=== PATIENT | male | born 1965 | race Caucasian/White ===

== ENCOUNTER 2021-09-07 11:29 | Emergency (ER) | payer OTHER, SELFPAY ==
[2021-09-07 11:45] VITALS: BP 150/97; PULSE 80; RESP 14; TEMP 37.1; O2SAT 99
--- NOTE | 2021-09-07 11:59 | ED.ANIMALBIT ---
HPI - Animal Bite General Chief Complaint: Animal Bite Stated Complaint: dog bite Time Seen by Provider: 09/07/21 11:59 Source: patient and family History of Present Illness HPI narrative: patient presents with dog bite to right hand. patient was walking his dogs and neighbors dog got out of fence. Patient jumped on pit bull to protect his dogs. and dog bit him on his right hand. two puncture wounds to right hand. Bleeding controled. Related Data Allergies Allergy/AdvReac Type Severity Reaction Status Date / Time No Known Allergies Allergy Verified 12/27/17 09:34 Review of Systems Review of Systems: CONSTITUTIONAL: Denies fever, chills, or sweats. EYES: Denies visual changes, redness, or discharge. ENT: Denies rhinorrhea, congestion, sore throat, or otalgia. CARDIOVASCULAR: Denies chest pain, palpitations, or edema. RESPIRATORY: Denies cough or dyspnea. GASTROINTESTINAL: Denies abdominal pain, nausea, vomiting, or diarrhea. GENITOURINARY: Denies dysuria or hematuria. SKIN: Denies rash or itching. MUSCULOSKELETAL: Denies back pain, joint pain, or myalgia. NEUROLOGIC: Denies headache, numbness, or weakness. PSYCHIATRIC: Denies anxiety or depression. [facility] Family History Family History (Updated 07/03/16 @ 10:03 by DOCTOR UNKNOWN) Father Family history of Parkinson's disease Sibling Family history of malignant neoplasm of breast in first degree relative Other Cerebrovascular accident Diabetes mellitus Family history of arthritis Family history of cardiovascular disease Family history of malignant neoplasm Hypertension Social History Social History Smoking status: Never smoker Smoking end date: 07/19/12 Alcohol intake: current Comments At time of signature, agree with nursing past medical, surgical, social and family history. There is no relevant family history pertinent to the presenting complaint Exam Narrative: GENERAL: Well-appearing, well-nourished, and in no acute distress. HEAD: Normocephalic, atraumatic. EYES: PERRLA and EOMI. ENT: Nares clear, no rhinorrhea or epistaxis. Mucous membranes moist. NECK: Supple. CHEST: Clear to auscultation. No respiratory distress. HEART: Regular rate and rhythm. No murmur heard. Normal peripheral pulses. ABDOMEN: Soft, nontender, nondistended, normal active bowel sounds. EXTREMITIES: Normal range of motion. No edema. HAND EXAM -puncture wounds to right hand see below no laceration, no swelling, no erythema, normal digit cascade with flexion of fingers, median nerve, ulnar nerve, radial nerve is intact. Normal sensation of each side of each finger, can perform `ok? sign, `cross over finger test of index and middle fingers? and `thumbs up? sign, normal thumb opposition, no scissoring. good capillary refill and radial pulse. normal flexion and extension of fingers and wrist. normal supination at wrist. Normal forearm and elbow exam. SKIN: Warm, dry, no rash. NEURO: No focal deficits. Alert and oriented x3. [place] Coma Scale Eye Opening: Spontaneous 4 [place] Coma Scale Motor: Obeys Commands 6 Denn[place] Coma Scale Verbal: Oriented 5 Dennys Coma Scale Total 15 Extrem: Hand/finger images: 1. puncture wound 2. puncture wound Course Course Level of Care: Express Care Visit Vital Signs Vital signs: Vital Signs Temperature 37.1 C 09/07/21 11:45 Pulse Rate 80 09/07/21 11:45 Respiratory Rate 14 09/07/21 11:45 Blood Pressure 150/97 H 09/07/21 11:45 Pulse Oximetry 99 09/07/21 11:45 Temperature 37.1 C 09/07/21 11:45 Pulse Rate 80 09/07/21 11:45 Respiratory Rate 14 09/07/21 11:45 Blood Pressure 150/97 H 09/07/21 11:45 Pulse Oximetry 99 09/07/21 11:45 Please SON schedule a followup visit with your personal physician for further evaluation and treatment. Including recheck and discussion of your blood pressure. If your symptoms persist, change or worsen significantly before you can contact your personal physician th
[2021-09-07] MEDS: TETANUS,DIPHTHERIA,AC PERTUSSIS ADULT (0.5 ML) BOOSTRIX IM (12:06)
== END 2021-09-07 12:21 | disposition home or self-care (01) ==
PROVIDERS: Emergency Provider Nurse Practitioner Family
DX: S61.431A Puncture wound without foreign body of right hand, initial encounter (principal); W54.0XXA Bitten by dog, initial encounter; Z23 Encounter for immunization; I48.91 Unspecified atrial fibrillation; Z86.16 Personal history of COVID-19
CPT/HCPCS: 90471; 90715; 99202; G0463

== ENCOUNTER 2023-12-11 18:30 | Emergency (ER) | payer OTHER, SELFPAY ==
[2023-12-11 18:38] VITALS: BP 155/90; PULSE 110; RESP 18; TEMP 38.1; O2SAT 99
--- NOTE | 2023-12-11 18:41 | ED.URI ---
HPI - URI/Sore Throat General Chief Complaint: Upper Respiratory Infection Stated Complaint: Cough/Fever Time Seen by Provider: 12/11/23 18:41 Source: patient, RN notes reviewed and old records reviewed Mode of arrival: ambulatory Limitations: no limitations History of Present Illness HPI Narrative: 58 year old male presents to [facility] care accompanied by with complaints of cough, chest congestion and nasal congestion for one week duration with fevers starting today. Patient reports that he has had fevers up to 101.8F and he has been taking DayQuil,NyQuil and Mucinex. Patient reports that he has been coughing up some white phlegm. Patient denies any acute dyspnea, admits to noting some wheezing when supine at times. Patient reports that had been ill with similar symptoms. MD elicited complaint: fever, cough, rhinorrhea, nasal congestion and other (body aches) Onset (ago): week(s) (1 with fevers today) Consistency: constant Pain scale (0-10): 4 Able to tolerate fluids by mouth: Yes Treatments prior to arrival: other (DayQuil,NyQuil and Mucinex) Related Data Allergies Allergy/AdvReac Type Severity Reaction Status Date / Time No Known Allergies Allergy Verified 12/11/23 18:36 Review of Systems Review of Systems: CONSTITUTIONAL: Reports malaise, chills, sweats, or fever. EYES: Denies visual changes, redness, or discharge. ENT: Reports rhinorrhea, congestion, sinus pain,no otalgia and no sore throat. CARDIOVASCULAR: Denies chest pain, palpitations, or edema. RESPIRATORY: Reports cough.? Denies dyspnea. GASTROINTESTINAL: Denies abdominal pain, nausea, vomiting, diarrhea SKIN: Denies rash or itching. MUSCULOSKELETAL: reports myalgia. NEUROLOGIC: Denies headache. All systems reviewed & are unremarkable except as noted in HPI and below PMFSH Past Medical History Medical History Atrial fibrillation Biceps tendon tear left with surgical repair Kidney stone Surgical History Surgical History H/O ventral hernia repair History of tonsillectomy Family History Family History Father Family history of Parkinson's disease Sibling Family history of malignant neoplasm of breast in first degree relative Other Cerebrovascular accident Diabetes mellitus Family history of arthritis Family history of cardiovascular disease Family history of malignant neoplasm Hypertension Social History Social History Smoking end date: 07/19/12 Alcohol intake: current Substance use type: does not use Living arrangements: with family Gender identity (if verbalized by the patient): Male Comments At time of signature, agree with nursing past medical, surgical, social and family history. There is no relevant family history pertinent to the presenting complaint Exam Narrative: GENERAL: Well-appearing, well-nourished, and in no acute distress. HEAD: Normocephalic EYES: PERRLA, conjunctivae clear ENT: Nares clear, turbinates edematous and erythematous, clear discharge. Mucous membranes moist. TM pearly [place] with dull light reflex bilaterally; no tragal tenderness. Oropharynx erythematous without lesions. Tonsils not present and throat without exudate, no drooling, no hoarseness, no trismus, uvula midline.post nasal drainage NECK: Supple. No lymphadenopathy CHEST:Scattered wheezing on auscultation, breath sounds equal. positive wheezing, no rhonchi, rales, or stridor. No respiratory distress, speaks in full sentences.productive cough of white phelgm SAO2 99% on room air, no retractions or tachypnea noted HEART: Regular rate and rhythm. No murmur heard. SKIN: Warm, dry, no rash. NEURO: Alert and oriented x3. PSYCH: Normal mood and affect Course Course Emergency Course
== END 2023-12-11 19:16 | disposition home or self-care (01) ==
PROVIDERS: Emergency Provider Registered Nurse
DX: J40 Bronchitis, not specified as acute or chronic (principal); I48.91 Unspecified atrial fibrillation; Z20.822 Contact with and (suspected) exposure to COVID-19
CPT/HCPCS: 87426; 87804; 99213; G0463

== ENCOUNTER 2023-12-20 19:47 | Observation (INO) | payer OTHER, SELFPAY ==
--- NOTE | ~2023-12-20 | MR_ITS ---
EXAMINATION: MR brain/brain stem wo con DATE: 12/21/2023 08:33 INDICATION: Transient ischemic attack. Stroke. TECHNIQUE: Magnetic resonance imaging (MRI) of the brain and brainstem was performed without intraven ous contrast. COMPARISON: Head CT 12/20/2023 FINDINGS: There is no intracranial hemorrhage, acute infarction, or abnormal intracranial mass lesion . The ventricles are normal in size. The mastoid air cells are normal. There is mild mucosal thickeni ng in the paranasal sinuses. The orbits are normal. IMPRESSION: 1. Normal brain. Reviewed, dictated and finalized at location A. IMPRESSION: 1. Normal brain.
--- NOTE | ~2023-12-20 | XR_ITS ---
EXAMINATION: XR chest 1V portable Exam Date/Time: 12/20/2023 21:20 CDT HISTORY: FALL LEFT SIDE FACIAL DROOP Comparison: 02/03/2010. RESULT: Lines, tubes, and devices: None. Lungs and pleura: Clear. Cardiomediastinal silhouette: Stable. Other: No acute osseous or upper abdominal finding. IMPRESSION: No acute cardiopulmonary process. Reviewed, dictated and finalized at location K.
--- NOTE | ~2023-12-20 | CT_ITS ---
EXAMINATION: CTA brain carotid DATE: 12/20/2023 20:25 INDICATION: stroke TECHNIQUE: Computed tomographic angiography (CTA) of the head was performed with 100 mL Omnipaque-350 intravenous contrast. Automated exposure control and iterative reconstruction technique were employe d. The dose-length product was 1217.31 mGy-cm. Maximum intensity projection and volume rendered 3D-r econstructions were created by the technologist on a separate workstation. COMPARISON: CT brain, same date. FINDINGS: CTA HEAD: No large vessel occlusion, aneurysm, high flow vascular malformation, nidus or extravasation. Persist ent origin of the left posterior cerebral artery. Patent cerebral veins. Symmetric parenchymal enhancement. CTA NECK: Aortic arch and proximal great vessels: No significant atherosclerotic plaque. Left vertebral artery takes its origin directly off the aortic arch.. Right common carotid, carotid bifurcation, and internal carotid artery: No plaque.There is 0% stenosi s of the proximal right internal carotid artery relative to normal distal artery lumen diameter (NASC ET criteria). Left common carotid, carotid bifurcation, and internal carotid artery: No plaque.There is 0% stenosis of the proximal left internal carotid artery relative to normal distal artery lumen diameter (NASCET criteria). Vertebral arteries: No significant plaque or stenosis. Right vertebral artery is dominant, Other findings: Cervical spondylosis. Possible acute sinusitis. IMPRESSION: No large vessel intracranial occlusion, high-grade intracranial stenosis, or aneurysm. No carotid or vertebral artery occlusion, dissection, or significant stenosis. Reviewed, dictated and finalized at location K. IMPRESSION: No large vessel intracranial occlusion, high-grade intracranial stenosis, or an eurysm. No carotid or vertebral artery occlusion, dissection, or significant stenosis.
--- NOTE | ~2023-12-20 | CT_ITS ---
EXAMINATION: CT brain wo con DATE: 12/20/2023 20:08 INDICATION: Stroke . TECHNIQUE: Computed tomography (CT) of the head was performed without intravenous contrast. The mA wa s adjusted according to patient size. Iterative reconstruction technique was employed. The dose-lengt h product was 605.33 mGy-cm. COMPARISON: None. FINDINGS: No acute intracranial hemorrhage or extra-axial fluid collection. No hydrocephalus, mass, or herniation. No acute ischemic infarct. Unremarkable dural venous sinus attenuation. No acute osseous abnormality. Aerated secretions in the right sphenoid sinus and multiple ethmoid air cells, the remaining aerated spaces are clear. Mild atrophy and chronic white matter change. Atherosclerotic intracranial calcification. IMPRESSION: No acute intracranial process. Sinus findings may represent acute sinusitis in the appropriate clinical context. Results reported telephonically to Dr. Obrien by Dr. Henson at 8:12 PM on 01/06/2024. Reviewed, dictated and finalized at location K. IMPRESSION: No acute intracranial process. Sinus findings may represent acute sinusitis in the appropriate clinical contex t. Results reported telephonically to Dr. Obrien by Dr. Henson at 8:12 PM on 12/18.
[2023-12-20 19:35] VITALS: BP 160/82; PULSE 94; RESP 15
[2023-12-20 19:42] VITALS: BP 160/98; PULSE 92; RESP 16; TEMP 36.7; O2SAT 99
--- NOTE | 2023-12-20 20:04 | ECG_ITS ---
[facility] [address] Test Date: 2023-12-20 Pat Name: Jann Boyd Department: Room: Gender: M Banquet Cook: : 1965 Requested By: Sue Pelletier Order Number: [id number] Doris MD: Wayne Roblero M.D. Measurements Intervals [place] Rate: 86 P: 50 WA: 164 QRS: -19 QRSD: 108 T: 10 QT: 326 QTc: 391 Interpretive Statements SINUS RHYTHM INCOMPLETE RIGHT BUNDLE BRANCH BLOCK [90+ ms QRS DURATION, TERMINAL R IN V1/V2, 40+ ms S IN I/aVL/V4/V5/V6] No previous ECG available for comparison Electronically Signed On 12-21-2023 14:17:36 CDT by Wayne Roblero M.D.
[2023-12-20 20:07] LABS: Estimated Glomerular Filt Rate > 60
[2023-12-20 20:29] VITALS: PULSE 89; O2SAT 100
[2023-12-20 20:32] LABS: Basophils Percent Auto 0.5 % (0.2-1.2); Eosinophils Absolute Auto 0.1 K/mm3 (0-0.3); Eosinophils Percent Auto 1.5 % (0-4.4); Hematocrit 43.4 % (42.0-52.0); Hemoglobin 15.8 g/dL (14.0-18.0); Immature Granulocyte Absolute 0.05 K/mm3 (0.00-0.031); Immature Granulocyte Percent A 0.6 % (0-0.5); Lymphocytes Absolute Auto 1.66 K/mm3 (0.9-3.2); Lymphocytes Percent Auto 20.4 % (18.3-44.2); Mean Corpuscular HGB Conc 36.4 g/dl (32-36); Mean Corpuscular Volume 96.2 fl (80-100); Mean Platelet Volume 9.4 fl (7.4-10.4); Monocytes Absolute Auto 0.6 K/mm3 (0.1-0.6); Neutrophils Absolute Auto 5.7 K/mm3 (1.3-6.7); Platelet Count Result 265 k/mm3 (150-375); Red Blood Count 4.51 M/mm3 (4.6-6.20); Red Cell Distribution Width 11.8 % (11.5-14.5); White Blood Count 8.1 K/mm3 (4.5-10.0)
[2023-12-20 20:50] LABS: Alanine Aminotransferase 27 U/L (6-50); Albumin Level 3.7 g/dL (3.5-5.1); Alkaline Phosphatase 32 U/L (38-126); Anion Gap 11 mmol/L (4-12); Aspartate Amino Transferase 21 U/L (17-59); Bilirubin,Total 0.9 mg/dL (0.2-1.3); Blood Urea Nitrogen 14 mg/dL (9-20); Carbon Dioxide 18 mmol/L (22-30); Chloride 108 mmol/L (98-107); Creatine Kinase 47 U/L (55-170); Estimated CRCL calculation 85 ml/min; Estimated Glomerular Filt Rate > 60; Glucose 123 mg/dL (65-110); Magnesium 2.1 mg/dL (1.6-2.3); Potassium 3.5 mmol/L (3.4-5.0); Sodium 137 mmol/L (137-145)
[2023-12-20 21:08] LABS: Lactic Acid Reflex 3.1 mmol/L (0.7-2.0)
[2023-12-20] MEDS: SODIUM CHLORIDE 0.9% IV 1,000 ML 999 ML IV CONT (21:17)
[2023-12-20 21:21] LABS: Prothrombin Time 13.9 Seconds (11.1-14.7)
[2023-12-20 21:22] LABS: Partial Thromboplastin Time 28.4 Seconds (22.3-36.8)
--- NOTE | 2023-12-20 21:24 | ED.NEUROSD ---
HPI - Neuro Symptoms/Deficit General Chief Complaint: Suspected CVA Stated Complaint: left sided facial droop Time Seen by Provider: 12/20/23 19:57 History of Present Illness HPI Narrative: Patient is a 58-year-old male who presents emergency department this evening due to concern for stroke-like symptoms. states that around 7:00 p.m. they were having dinner when she noticed that his left arm was slumped over. Patient also asked her to help him get up from a seated position as he was not able to get up. Patient eventually did get up himself but noticed that he was more ataxic. also believes that she may have seen a left facial droop. She called 911 and EMS arrived. Per EMS report, by the time they arrived, they did not notice any left-sided weakness or left-sided facial droop and the patient's symptoms have completely resolved. Patient does have some mild tremors per EMS otherwise no additional symptoms. Patient is alert and oriented to person, place, time and situation is answering all of my questions appropriately. The only thing he cannot remember his age. NIH score 1. Patient does have some involuntary upper extremity and lower extremity movements which family members states started today earlier in the day. is unsure if the left upper extremity weakness she noticed at 7:00 a.m. was part of his involuntary muscle movements or due to weakness as patient has been having these muscle movements all day which makes him outside of the TPA window. Related Data Allergies Allergy/AdvReac Type Severity Reaction Status Date / Time No Known Allergies Allergy Verified 12/20/23 20:39 Review of Systems Review of Systems: All systems are reviewed and are negative unless stated otherwise in the HPI. [facility] Past Medical History Medical History Atrial fibrillation Biceps tendon tear left with surgical repair Kidney stone Surgical History Surgical History H/O ventral hernia repair History of tonsillectomy Family History Family History Father Family history of Parkinson's disease Sibling Family history of malignant neoplasm of breast in first degree relative Other Cerebrovascular accident Diabetes mellitus Family history of arthritis Family history of cardiovascular disease Family history of malignant neoplasm Hypertension Social History Social History Smoking end date: 07/19/12 Alcohol intake: current Substance use type: does not use Living arrangements: with family Gender identity (if verbalized by the patient): Male Exam Narrative: General: Alert, awake, afebrile, in no acute distress. HEENT: PERRL, no rhinorrhea, no post nasal drip, oropharynx clear. Cardiovascular: Regular rate and rhythm, no murmurs, rubs or gallops, no peripheral edema. Respiratory: Clear to auscultation bilaterally, no tachypnea, no wheezing, no rhonchi, no rubs, no respiratory distress. Abdomen: Soft, nontender, nondistended, no rebound, no guarding, no peritoneal signs. Musculoskeletal: No joint swelling or deformity, normal muscle tone. Skin: No rashes or petechia, no signs of infection. Neurological: Alert and oriented to person, place, and time. Follows all commands. 5/5 motor strength in the bilateral upper and lower extremity, sensation intact bilateral lower and upper extremity, cranial nerves 2-12 grossly intact, speech is clear and fluent. NIH score 1 since patient cannot remember his age. Course Vital Signs Vital signs: Vital Signs Pulse Rate 94 12/20/23 19:35 Respiratory Rate 15 12/20/23 19:35 Blood Pressure 160/82 H 12/20/23 19:35 Temperature 98.0 F 12/20/23 19:42 Pulse Rate 89 12/20/23 20:29 Respiratory Rate 16 12/20/23 19:42 Blood Pressure
[2023-12-20 21:33] LABS: Ethanol < 10 mg/dL (<10)
[2023-12-20 22:35] VITALS: BP 156/97; PULSE 103; RESP 16; O2SAT 97
[2023-12-20 22:39] VITALS: BP 144/87; PULSE 86; RESP 17; O2SAT 95
[2023-12-20 22:40] LABS: Folic Acid 5.5 ng/mL (2.76->20)
[2023-12-20 22:47] VITALS: BP 150/87; PULSE 77; RESP 18; TEMP 36.8; O2SAT 100; BMI 26.6
--- NOTE | 2023-12-20 22:50 | ADMGEN ---
This patient, Jann Boyd, was admitted to Medical Room 244-01. Patient/family oriented to hospital policies and general routines including ID bracelet, bed and alarms, visiting hours, pain management, procedures, bathroom and other care routines, personal items, smoking policy, room service/diet, and visiting hours. Information on how to activate the Rapid Response Team has been discussed. Patient/Family are encouraged to report perceived risks to care and to ask questions if they do not understand what they are told or what they should do.
[2023-12-20 23:30] LABS: Reflex Lactic Acid Yes or No Add Lactic
[2023-12-20 23:55] LABS: Lactic Acid 1.4 mmol/L (0.7-2.0)
[2023-12-21] VITALS: PULSE 89
--- NOTE | 2023-12-21 | ECHO_ITS ---
Patient Info Name: Jann Boyd Age: 58 years : 1965 Gender: Male Ht: 69 in Wt: 180 lbs BSA: 2.01 m2 HR: 68 bpm BP: 141 / 87 mmHg Heart Rhythm: Sinus Rhythm Technical Quality: Good Exam Date: 12/21/2023 8:49 AM Exam Location: Echo Lab Patient Status: Outpatient Admit Date: 12/21/2023 Staff Ordering Physician: Pooja Carty APRN Mirror Silverer: Susana Melchor RDCS Attending Provider: Brittanie Rudolph DO Referring Physician: Carloz HSIEH; Exam Type: CA echo doppler w bubble study Study Info Indications - stroke, tia Complete two-dimensional, color flow and Doppler transthoracic echocardiogram is performed with agitated saline. Contrast/Agitated Saline Contrast/Ag. Saline: Agitated Saline Amount: 30.00 ml Existing IV Access: Yes IV Access Condition: patent with no signs of infiltration Summary 1. Left ventricular chamber dimension is normal. 2. Left ventricular systolic function is normal, estimated at 60-65%. 3. There is mildly increased left ventricular wall thickness. 4. The left ventricular diastolic function is grade I diastolic dysfunction. 5. Right ventricular systolic function is normal. 6. Intact interatrial septum visualized by color flow and agitated saline imaging. Negative bubble study. 7. There is mild aortic valve regurgitation. Left Ventricle Left ventricular chamber dimension is normal. Left ventricular systolic function is normal, estimated at 60-65%. There is mildly increased left ventricular wall thickness. The left ventricular diastolic function is grade I diastolic dysfunction. Right Ventricle Right ventricular chamber dimension is normal. Right ventricular systolic function is normal. Left Atria Left atrial chamber dimension is normal. Right Atria Right atrial chamber dimension is normal. Atrial Septum Intact interatrial septum visualized by color flow and agitated saline imaging. Negative bubble study. Aortic Valve The aortic valve is trileaflet. There is mild aortic valve sclerosis. There is no aortic valve stenosis. There is mild aortic valve regurgitation. Pulmonic Valve The pulmonic valve is not well visualized. There is no pulmonic regurgitation. Mitral Valve The mitral valve has thickened leaflets. There is trace mitral valve regurgitation. Tricuspid Valve There is trace tricuspid valve regurgitation. Pericardium/Pleural There is no pericardial effusion. Inferior Vena Cava Normal inferior vena cava with >50% collapse upon inspiration consistent with normal right atrial pressure, 3 mmHg. Aorta The aortic root size at the sinus of Valsalva is normal. Left Ventricular Outflow Tract Name Value Normal LVOT 2D LVOT Diameter 2.1 cm LVOT Doppler LVOT Peak Gradient 4 mmHg LVOT Mean Gradient 2 mmHg LVOT VTI 19 cm LVOT VTI/AV VTI Ratio 0.7 LVOT Stroke Volume 65 ml LVOT CO 3.4 l/min LVOT CI 1.7 l/min/m2 Pulmonic Valve
[2023-12-21 04:00] VITALS: PULSE 73
[2023-12-21 04:37] VITALS: BP 141/87; PULSE 68; RESP 17; TEMP 36.8; O2SAT 99
--- NOTE | 2023-12-21 07:08 | PM.IMHP ---
H&P: HPI History of Present Illness Date/Time: 12/21/23 07:08 Chief Complaint: Left-sided weakness Narrative: This is a 58-year-old gentleman with a past medical history of atrial fibrillation Review of Systems Review of Systems: All systems reviewed & are unremarkable except as noted in HPI and below [facility] Past Medical History Medical History (Updated 12/21/23 @ 07:24 by Pooja Carty APRN) Atrial fibrillation Biceps tendon tear left with surgical repair Kidney stone Surgical History Surgical History H/O ventral hernia repair History of tonsillectomy Family History Family History Father Family history of Parkinson's disease Sibling Family history of malignant neoplasm of breast in first degree relative Other Cerebrovascular accident Diabetes mellitus Family history of arthritis Family history of cardiovascular disease Family history of malignant neoplasm Hypertension Social History Social History Smoking status: Never smoker Smoking end date: 07/19/12 Alcohol intake: current Drinks per week: 14 Substance use: never Substance use type: does not use Last use: LAST DRINK 12/19 1829 Do You Feel Safe in your Home?: Yes Lack of Transportation: No Lack of Food: Never True Current Housing: I Have Housing Concerned About Future Housing: No Difficulty Paying Gas/Electric Bills: No Difficulty Paying for Meds: No Currently Unemployed: No Education: Associate Degree Difficulty w/ Childcare or Family Care: No Living arrangements: with family Gender identity (if verbalized by the patient): Male Spiritual care concerns: No Meds Home Medications and Allergies Home Medications Medication Instructions Recorded Confirmed Type albuterol sulfate 90 mcg/actuation 2 puff inhalation QID PRN 12/11/23 12/20/23 Rx aerosol inhaler shortness of breath or wheezing #6.7 grams Allergies Allergy/AdvReac Type Severity Reaction Status Date / Time No Known Allergies Allergy Verified 12/20/23 20:39 Vital Signs Vital Signs - 24 hr 12/20/23 19:42 12/20/23 20:29 12/20/23 20:29 Temperature 98.0 F Pulse Rate 92 89 Respiratory Rate 16 Blood Pressure 160/98 H Pulse Oximetry 99 100 Oxygen Delivery Room Air Room Air 12/20/23 19:35 12/20/23 22:35 12/20/23 22:39 Temperature Pulse Rate 94 103 H 86 Respiratory Rate 15 16 17 Blood Pressure 160/82 H 156/97 H 144/87 H Pulse Oximetry 97 95 Oxygen Delivery 12/20/23 22:47 12/20/23 23:03 12/21/23 00:00 Temperature 98.3 F Pulse Rate 77 89 Respiratory Rate 18 Blood Pressure 150/87 H Pulse Oximetry 100 Oxygen Delivery Room Air 12/21/23 04:00 12/21/23 04:37 Temperature 98.2 F Pulse Rate 73 68 Respiratory Rate 17 Blood Pressure 141/87 H Pulse Oximetry 99 Oxygen Delivery Exam Narrative: General: well appearing, appears stated age. HEENT: normocephalic, atraumatic. Mucous membranes moist. EOMI, PERRLA, bilateral sclera anicteric, no conjunctival injection. Neck supple without JVD, lymphadenopathy, or bruit. Respiratory: clear to auscultation bilaterally. No rales/rhonic/wheezes. Cardiovascular: Regular rate and rhythm, normal S1-S2 upon auscultation. No murmurs, rubs, or clicks. PMI is nondisplaced, capillary refill less than 3 second. Abdomen: Soft, round, no pulsatile masses, nondistended and nontender. No rebound, no guarding. No CVA tenderness, no hepatosplenomegaly. Bowel sounds present to all four quadrants. No high pitch or tinkling sounds, resonant to percussion. Extremities: No cyanosis, clubbing, or edema present. Pulses are palpable 2/2. Active ROM to all four extremities. Neuro: Alert and orientated x 4. PERRLA. Cranial nerves 2-12 intact without focal deficit. Skin: Warm, dry, and intact
[2023-12-21 08:00] VITALS: PULSE 62
[2023-12-21 08:23] LABS: Hematocrit 47.3 % (42.0-52.0); Hemoglobin 16.2 g/dL (14.0-18.0); Mean Corpuscular HGB Conc 34.2 g/dl (32-36); Mean Corpuscular Hemoglobin 34.4 pg (26-34); Mean Corpuscular Volume 100.4 fl (80-100); Mean Platelet Volume 9.8 fl (7.4-10.4); Platelet Count Result 279 k/mm3 (150-375); Red Blood Count 4.71 M/mm3 (4.6-6.20); Red Cell Distribution Width 11.8 % (11.5-14.5); White Blood Count 8.6 K/mm3 (4.5-10.0)
[2023-12-21 08:46] LABS: Alanine Aminotransferase 32 U/L (6-50); Albumin Level 3.9 g/dL (3.5-5.1); Alkaline Phosphatase 36 U/L (38-126); Anion Gap 4 mmol/L (4-12); Aspartate Amino Transferase 24 U/L (17-59); Bilirubin,Total 1.3 mg/dL (0.2-1.3); Blood Urea Nitrogen 11 mg/dL (9-20); Calcium 9.2 mg/dL (8.4-10.2); Carbon Dioxide 28 mmol/L (22-30); Chloride 108 mmol/L (98-107); Estimated CRCL calculation 97 ml/min; Estimated Glomerular Filt Rate > 60; Glucose 115 mg/dL (65-110); Potassium 3.9 mmol/L (3.4-5.0); Sodium 140 mmol/L (137-145)
[2023-12-21 08:48] LABS: Magnesium 2.5 mg/dL (1.6-2.3)
[2023-12-21 08:58] VITALS: O2SAT 99
[2023-12-21 09:02] LABS: Hemoglobin A1C 5.2 % (<5.7)
[2023-12-21 10:27] LABS: Amphetamine Screen Urine Negative (Negative); Barbiturate Screen Urine Negative (Negative); Benzodiazepines Screen Urine Negative (Negative); Cannabinoid Screen Urine Negative (Negative); Cocaine Screen Urine Negative (Negative); Methadone Screen Urine Negative (Negative); Opiate Screen Urine Negative (Negative); Phencyclidine Screen Urine Negative (Negative)
[2023-12-21 10:50] LABS: Cholesterol 218 mg/dL (0-200); HDL Direct 44 mg/dL; Triglycerides 185 mg/dL (<150)
[2023-12-21 11:01] LABS: LDL Cholesterol Direct 137 mg/dL
--- NOTE | 2023-12-21 11:46 | WPDNEURCNPN ---
Assessment and Plan Assessment and plan (1) Atrial fibrillation: Code(s): I48.91 - Unspecified atrial fibrillation Status: Acute (2) Stroke-like symptom: Code(s): R29.90 - Unspecified symptoms and signs involving the nervous system Status: Acute (3) Seizure: Code(s): R56.9 - Unspecified convulsions Status: Acute Plan 1. TIA considering the past history of atrial fibrillation even though it was long time ago and considering his age he will need the monitoring and for that reason cardiology consultation can be obtained and in the meantime echocardiogram with bubble study can also be obtained ,he can be started on aspirin 81mg daily and Plavix 75mg daily for the next 3 weeks Until and unless his studies are abnormal to consider the anticoagulation therapy. 2. Considering the history of tremulousness prior to this episode EEG can be obtained to rule out the possibility of focal seizures. As the family is extremely concerned about the possibility of Parkinson's disease that will be clarified On repeat examination. 3. MCV is definitely 100.4 he can check the B12 and folate level. Consult date: 12/21/23 HPI: Jann Boyd is a 58 year old male Admitted to the hospital through the emergency room with information from his that around 7:00 p.m. they were having dinner when she noted his left arm was slumped over patient also asked her to help him get up from seated position as he was not able to get up and eventually he did get up himself but noted that he was more ataxic and at that time he was also noted to have left facial droop 911 and EMS were called and arrived but by the time they arrived the left-sided facial droop was gone though he was noted to have mild tremulous symptoms, he was awake alert and oriented to person place and time and was also answering all the questions appropriately .He was unable to remember his age and he was noted to have some involuntary upper extremity and lower extremity movements which started earlier in the day was not sure whether is under voluntary movements are secondary to weakness as he was having the muscle movements all day. he is not allergic to any medicines, in the past he has had the history of atrial fibrillation long time ago, has also undergone biceps tendon repair in the past. He currently drinks alcohol but no substance abuse an initial exam in the emergency room was nonfocal his vital signs were normal except blood pressure 160/82 routine blood studies were normal except MCV 100.4 drug screen negative, MRI of the brain today is normal, CTA in the emergency room was negative for any aneurysm or high-grade intracranial stenosis. [facility] Past Medical History Medical History Atrial fibrillation Biceps tendon tear left with surgical repair Kidney stone Surgical History Surgical History H/O ventral hernia repair History of tonsillectomy Family History Family History Father Family history of Parkinson's disease Sibling Family history of malignant neoplasm of breast in first degree relative Other Cerebrovascular accident Diabetes mellitus Family history of arthritis Family history of cardiovascular disease Family history of malignant neoplasm Hypertension Social History Social History Smoking status: Never smoker Smoking end date: 07/19/12 Alcohol intake: current Drinks per week: 14 Substance use: never Substance use type: does not use Last use: LAST DRINK 12/19 1829 Do You Feel Safe in your Home?: Yes Lack of Transportation: No Lack of Food: Never True Current Housing: I Have Housing Concerned About Future Housing: No Difficulty Paying Gas/Electric Bills: No Difficulty Paying for Meds: No Currently Unemplo
[2023-12-21 12:00] VITALS: PULSE 73
--- NOTE | 2023-12-21 12:10 | PM.SD2 ---
Same Day Admit/Disch: HPI History of Present Illness Chief complaint: Stroke Like Symptoms/Involuntary Muscle Movememts/ Narrative: Jann Boyd is a 58 year old male with no significant past medical history. He does state that he had 1 occurrence of atrial fibrillation approximately 30 years ago when he was a heavy drinker. He underwent a stress test which was normal. He never has required rate control medications and his a fib has never reoccurred. The patient has provided the following history. Yesterday he was sitting on his deck and his notice some left facial droop with slurred speech a he is unable to raise his left arm. He was also leaning to the left when he was walking. His called EMS and his symptoms resolved before their arrival. He was admitted for a stroke work up and neurology consult. CT non con was negative, CTA head and neck was negative, and MRI shows normal brain. Chest x-ray with no acute cardiopulmonary process. Patient was monitored on telemetry and remained sinus rhythm. Echo with bubble study was negative. He was diagnosed with a TIA and started on aspirin, Plavix, and atorvastatin. Neurology has recommended an EEG as an outpatient to workup any possible seizure as the patient has had tremulous complaints and carries a history of Parkinson's in his family. Patient has been instructed to follow up with his primary care provider in the next 1 week. [facility], [facility] Past Medical History Medical History Atrial fibrillation Biceps tendon tear left with surgical repair Kidney stone Surgical History Surgical History H/O ventral hernia repair History of tonsillectomy Family History Family History Father Family history of Parkinson's disease Sibling Family history of malignant neoplasm of breast in first degree relative Other Cerebrovascular accident Diabetes mellitus Family history of arthritis Family history of cardiovascular disease Family history of malignant neoplasm Hypertension Social History Social History Smoking status: Never smoker Smoking end date: 07/19/12 Alcohol intake: current Drinks per week: 14 Substance use: never Substance use type: does not use Last use: LAST DRINK 12/19 1829 Do You Feel Safe in your Home?: Yes Lack of Transportation: No Lack of Food: Never True Current Housing: I Have Housing Concerned About Future Housing: No Difficulty Paying Gas/Electric Bills: No Difficulty Paying for Meds: No Currently Unemployed: No Education: Associate Degree Difficulty w/ Childcare or Family Care: No Living arrangements: with family Gender identity (if verbalized by the patient): Male Spiritual care concerns: No Same Day Admit/Disch: Med Pre-admit Medications Home Medications Medication Instructions Recorded Confirmed Type albuterol sulfate 90 mcg/actuation 2 puff inhalation QID PRN 12/11/23 12/20/23 Rx aerosol inhaler shortness of breath or wheezing #6.7 grams aspirin 81 mg tablet,delayed 81 mg PO QAM #90 tabs 12/21/23 Rx release atorvastatin 40 mg tablet 40 mg PO DAILY #90 tabs 12/21/23 Rx clopidogrel 75 mg tablet 75 mg PO QAM #21 tabs 12/21/23 Rx Review of Systems Review of Systems All systems reviewed & are unremarkable except as noted in HPI and below Exam Narrative: General: well appearing, appears stated age. HEENT: normocephalic, atraumatic. Mucous membranes moist. EOMI, PERRLA, bilateral sclera anicteric, no conjunctival injection. Neck supple without JVD, lymphadenopathy, or bruit. Respiratory: clear to auscultation bilaterally. No rales/rhonic/wheezes. Cardiovascular: Regular rate and rhythm, normal S1-S2 upon auscultation. No murmurs, rubs, or clicks. PMI is nondisplaced, capillary refill less than 3
== END 2023-12-21 12:50 | disposition home or self-care (01) ==
LOC: ANHED 21:59 → ANH2MED 22:51
PROVIDERS: Nurse Practitioner Acute Care; Admitting Provider Internal Medicine; Emergency Provider Emergency Medicine; Visit Provider Internal Medicine
DX: G45.9 Transient cerebral ischemic attack, unspecified (principal); R29.701 NIHSS score 1; I48.91 Unspecified atrial fibrillation; I35.1 Nonrheumatic aortic (valve) insufficiency; Z87.891 Personal history of nicotine dependence; Z79.51 Long term (current) use of inhaled steroids; Z79.899 Other long term (current) drug therapy
CPT/HCPCS: 36415; 70450; 70496; 70498; 70551; 71045; 80053; 80061; 80307; 82550; 82607; 82746; 83036; 83605; 83735; 84443; 85025; 85027; 85610; 85730; 93005; 93306; 96360; 96375; 99285; G0378; J7030; Q9967

== ENCOUNTER 2024-01-10 08:50 | Outpatient (CLI) | payer OTHER, SELFPAY ==
--- NOTE | 2024-01-11 09:01 | WPDNEUROLOGY ---
Neurology EEG Report General Information Date of Study: 01/10/24 TEST eeg DIAGNOSIS tremors CONDITION OF RECORDING awake drowsy and sleep EEG NUMBER [id number] CLINICAL HISTORY patient reports about a month ago he had an episode of falling, drooping of the facial muscles, and he was unable to talk and he shook his upper extremities. Everything since then has resolved and he has had no issues. EEG DESCRIPTION Basic resting occipital frequency consists of low to medium voltage 9 to 11 hertz per 2nd alpha with good anterior to posterior gradient and symmetrical blockage of the alpha rhythm with eyes opening. Low-voltage beta activity seen diffusely admixed with intermittent low-voltage to medium voltage 6 to 7 hertz per 2nd theta activity. Bilateral symmetrical sleep activity is noted during sleep. With initially mixture of the beta theta and Alpha activity evolving into deeper stages of sleep with symmetrical sleep spindles. Non paroxysmal. Nonfocal. Non lateralizing. IMPRESSION Normal record.
== END 2024-01-10 08:51 | disposition home or self-care (01) ==
PROVIDERS: Visit Provider Nurse Practitioner Acute Care
DX: R25.1 Tremor, unspecified (principal)
CPT/HCPCS: 95816